=== PATIENT | male | born 2000 | race Caucasian/White ===

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

== ENCOUNTER 2022-03-20 17:47 | Emergency (ER) | payer BC, SELFPAY ==
[2022-03-20 17:48] VITALS: BP 156/56; PULSE 72; RESP 14; TEMP 35.8; O2SAT 100; BMI 25.9
--- NOTE | 2022-03-20 18:26 | EX.ED.UPPERE ---
HPI History of Present Illness Chief Complaint: Laceration Detail of Chief Complaint: Dorsum left long finger versus grinding wheel. Informant: patient Occured/Mechanism Mechanism/Context: Yes injury Onset/Context/Timing Onset: Today Context: Sudden Onset Timing: Continuous Current Severity: Mild Maximum Severity: Mild Associated Symptoms Associated Symptoms: Negative for Parasthesia, Weakness and Loss of Funtion Narrative Narrative: 22-year-old male [id number]. Tetanus up-to-date. Nursing and past medical history. Was using a grinding wheel working on his car when the wheel broke and last rated the dorsum of his left long finger between the PIP and DIP joints. Denies any other complaints. Tetanus Immunization: 5-10 years Prior similar symptoms: No Recent Illness/Hospitalization: No PFSH PFSH Home Medications NK 03/20/22 [History Last Taken Unknown] Allergy/AdvReac Type Severity Reaction Status Date / Time No Known Allergies Allergy Verified 03/20/22 17:48 Surgical History (Updated 03/20/22 @ 18:47 by Pj Still RN) History of shoulder surgery Social History Smoking Status: Current every day smoker tobacco type: e-cigarettes ROS ROS ED ROS Narrative Denies recent illness. Review of Systems ROS Unobtainable: Denies due to encephalopathy Constitutional Constitutional ED: Denies fever(s) Eyes Eyes: Denies change in vision ENT ENT ED: Denies ear pain Cardiovascular Cardiovascular: Denies chest pain Respiratory/Chest Respiratory/Chest: Denies dyspnea Gastrointestinal Gastrointestinal: Denies abdominal pain Genitourinary Genitourinary ED: Denies dysuria Musculoskeletal Musculoskeletal: Denies myalgias Integumentary Denies rash Neurologic Neurologic: Denies headache(s) Psychiatric Psychiatric: Denies depression Endocrine Endocrinology: Denies polyuria Hematologic/Lymphatic Hematologic/Lymphatic: Denies easy bruising Allergic/Immunologic Allergic/Immunologic ED: Denies urticaria EXAM Physical Exam Narrative Exam Narrative: 22-year-old male no acute distress. Vital signs stable afebrile. Heart lung abdominal exams normal. Left hand dorsum left long finger between the PIP and DIP joints is a laceration involves the skin and subcu tissue. He has full range of motion to the left long finger. Full flexion extension. Normal cap refill. Normal touch sensation. No bony deformity. No signs of infection. No obvious foreign body. Rest the left hand exam is normal. Const Vital Signs: 03/20/22 17:48 Temperature 96.4 F L Temperature Source Temporal Pulse Rate 72 Respiratory Rate 14 Blood Pressure 156/56 H Blood Pressure Mean 89 Pulse Ox 100 Oxygen Delivery Method Room Air Positive well nourished and well developed; Negative for obese, cachectic, contractures or unkempt General Appearance ED: well developed and NAD; Negative for unkempt, cachectic, contractures, cyanotic or diaphoretic Nutritional Appearance: Negative for cachectic or obese HEENT Reports moist mucous membranes normocephalic and atraumatic Eyes PERRL and EOMs intact bilaterally Neck full ROM and supple General: Negative for tenderness Chest Wall inspection of chest normal and palpation of chest normal Resp normal respiratory effort and clear to auscultation bilaterally Auscultation: Negative for rales, rhonchi or wheezes Cardio regular rate, regular rhythm, S1 normal heart sound, S2 normal heart sound and no murmurs GI non-tender, non-distended and no masses Inspection: Negative for abdominal distention Auscultation: normoactive bowel sounds; Negative for hyperactive bowel sounds Palpation: soft; Negative for tender, guarding or rebound tenderness present Back/Spine no CVA tenderness General Back: Negative for CVA tenderness Cervical Spine: Negative for cervical spine tenderness Thoracic Spine / Upper Back: Negative for thoracic spinal tenderness Lumbar Spine / Lower Back: Negative for lumbar spinal tenderness Extremity normal to inspection and full ROM Extremity Narrative: Left long finger laceration over the dorsum. General Extremety ED: Negative for edema General Extremity: Negative for edema Neuro oriented x3 and moves all extremities Sensorium / Orientation: alert, oriented to person, oriented to place and oriented to time Motor Exam: strength 5/5 throughout Psych mental status grossly normal Appearance: Negative for unkempt Attitude: No agitated Mood & Affect: Negative for depressed or tearful Skin Skin Narrative: Left long finger laceration. Over the dorsum between the PIP and DIP. Up-to-date. 3 cm in length. Involves the skin and subcu tissue. Lesions: no lesions Rashes: no rashes Trauma: laceration; Negative for no lacerations or abrasions MDM MDM MDM Narrative Medical decision making narrative: Left long finger laceration. Tetanus up-to-date. Will need to be repaired. X-ray being obtained. Repaired and discharged to home. Radiography Diagnostic Testing: Left long finger x-ray 3 view shows no acute abnormality. No fracture. No foreign body. Procedures Lacerations Left long finger laceration: Length: 1.18 in Depth: Sub Q Shape: Linear Prep: Sterile Conditions and Shure-Clens Laceration repair: Irrigated, Lidocaine, Local, Skin sutures and Wound explored Number of Sutures/Mala: 4 Suture Information: Ethilon Comment: Left long finger laceration repair. 3 cm. Local anesthetic. Cleaned with Shur-Clens. Washed with saline. Irrigated with saline. Explored. No foreign body noted. No tendon or joint involvement noted. X-ray was negative. Repaired using 4 simple interrupted 4-0 Ethilon sutures. Proper hemostasis wound closure is obtained. Patient tolerated procedure well. They are instructed on wound care. Discharge Plan Triage Chief Complaint: Laceration ED Provider: Mino Manning Dx/Rx/DC Orders Clinical Impression: Finger laceration Instructions: ED Laceration, Hand: All Closures Prescriptions: No Action NK RF: 0 Primary Care Provider: Care Physician,No Primary Referrals: Matt Swift MD [STAFF PHYSICIAN] - 10-14 Days suture removal Care Physician,No Primary [Primary Care Provider] - Activity Restrictions/Additional Instructions: Keep wound clean and dry. Clean daily with soap and water or peroxide and water. If our dressings is dry and clean nucleate on for 3 or 4 days. Apply antibiotic ointment daily. Watch for any signs of infection such as pus, redness, fever or significant swelling if seen return. Suture removal in 10 to 14 days. Disposition Disposition: Home, Self Care
--- NOTE | 2022-03-20 18:30 | RAD_ITS ---
STUDY: X-RAY - LEFT HAND, ATTENTION THIRD FINGER REASON FOR EXAM: Male, 22 years old. trauma left long finger, pain TECHNIQUE: 3 view(s) of the finger were obtained. COMPARISON: None. FINDINGS: Normal metacarpal head. Normal metacarpophalangeal joint. Normal proximal phalanx. Normal middle phalanx. Normal distal phalanx. Normal proximal interphalangeal joint. Normal distal interphalangeal joint. RAD/Finger(s) Min 2 Views IMPRESSION: Normal x-ray examination of the finger. Electronically Signed: Johnny Bond MD at 18:51 EDT ,
[2022-03-20] MEDS: Lidocaine 1% (20 ml mdv) 20 ML Vial 10 ML INFILT (19:41)
--- NOTE | 2022-03-20 20:04 | CM.ED ---
SW Note Referral Source: Case Find Referral Reason: NO PCP SW met with patient and provided him with [facility] Healthcare Provider list and encouraged him to obtain a PCP. No other issues or concerns voiced. SW remains available. Plan: [facility] LACEY
== END 2022-03-20 20:08 | disposition home or self-care (01) ==
PROVIDERS: Emergency Provider Emergency Medicine; Visit Provider Emergency Medicine
DX: S61.213A Laceration without foreign body of left middle finger without damage to nail, initial encounter (principal); X58.XXXA Exposure to other specified factors, initial encounter
CPT/HCPCS: 12001; 73140; 99283

== ENCOUNTER → 2024-02-06 | Outpatient (CLI) | payer OTHER, SELFPAY ==
[2024-02-06 18:05] LABS: CRP < 2.90 mg/L (0.0-3.0)
[2024-02-08 16:09] LABS: Endomysial Antibody IgA Negative (Negative); Immunoglobulin A 140 mg/dL (90-386); t-Transglutaminase IgA <2 U/mL (0-3)
== END | disposition home or self-care (01) ==
PROVIDERS: PCP Family Medicine; Referring Provider Internal Medicine Gastroenterology; Visit Provider Internal Medicine Gastroenterology
DX: R19.7 Diarrhea, unspecified (principal)
CPT/HCPCS: 36415; 82784; 83516; 86140; 86255

== ENCOUNTER → 2024-03-13 | Outpatient (CLI) | payer OTHER, SELFPAY ==
--- NOTE | 2024-03-13 07:55 | NM_ITS ---
CLINICAL: 24-year-old male with history of chronic nausea. SOLID PHASE 99m Tc SULFUR COLLOID GASTRIC EMPTYING STUDY COMPARISON: None available FINDINGS: The patient was administered 1.1 mCi of 99m Tc sulfur colloid mixed with egg and consumed per os. Image acquisitions in the anterior-posterior projections for a total of 238 minutes following meal consumption. There is prompt visualization of the stomach. There is no gastroesophageal reflux identified. First order kinetics are maintained throughout the duration of the acquisitions. The T ? raw data emptying was calculated to be 81.44 minutes, (Normal 65-110 minutes). 99 % emptying and 1.0 % retention are defined at 4 hours post meal ingestion. NM/Gastric Emptying Study - 4 HR IMPRESSION: 1. NORMAL 99m Tc sulfur colloid solid phase gastric emptying imaging examination. A. There is normal and preserved solid phase gastric emptying compared to normal controls with maintained first order kinetics throughout all components of the examination. (Elian et al, Gastroenterology 77: 75, 1979 Jose et al, Semin Nucl Med 12: 116, 1981 Everett et al, SNM Procedure Guidelines Adult Solid Meal Gastric Emptying Study 3.0 [email or web address]). B. Greater than 90% emptying of the initial gastric contents at 4 hours post dose is consistent with normal solid phase gastric emptying which correlates with the results of the T ? emptying calculation. (Mike et al, J Nucl Med 48: 568, 2007). Electronically Signed: Linus Ocampo DO at 9:53 EDT ,
== END | disposition home or self-care (01) ==
LOC: NM 07:53
PROVIDERS: PCP Family Medicine; Referring Provider Internal Medicine Gastroenterology; Visit Provider Internal Medicine Gastroenterology
DX: R11.2 Nausea with vomiting, unspecified (principal)
CPT/HCPCS: 78264; A9541